=== PATIENT | male | born 1930 | race African-American/Black ===

== ENCOUNTER 2017-03-16 08:34 | Inpatient (IN) | payer MEDICARE ==
--- NOTE | ~2017-03-16 | CR72 ---
[facility] A Service of [facility] RADIOLOGY TEXT RESULTS PATIENT: PRADEEP HUGO LOCATION: [facility] : [birth year] UNIT #: [id number] AGE: [address]: Sneha Brumfield MD SEX: M ORDER DR: [id number] [facility] [address] [facility]. [place], [place] [address] [id number] I MR#: [id number] Acc #: [id number] NAME: PRADEEP HUGO : 1930 SEX: M STUDY DATE/TIME: 03/22/2017 6:24 UNIT: [facility] ROOM: [address] [place] [address] DESCRIPTION: CR Chest Single View Portable Attending Physician: Sneha Brumfield M.D. Ordering Physician: Jacquelin Cochran A.P.R.N. Primary Care Physician: Estefani Haskins MEDICAL IMAGING REPORT This report is preliminary unless electronic signature is present EXAM Portable chest 03/22/2017 COMPARISON 03/21/2017. HISTORY Shortness of breath, weakness, history of pneumothorax. Symptoms beginning on March 19 post thoracotomy. FINDINGS An AP view is obtained. Cardiac size in the patient is unchanged and borderline enlarged. There is some volume loss in the right lung with loculated right-sided pleural fluid. Left lung is clear. Compared with the last radiograph, there has been no interim change. CONCLUSION No interim change. Dictated by... Gelacio Astudillo M.D. THIS IS AN ELECTRONICALLY VERIFIED REPORT Gelacio Astudillo M.D. at 03/25/2017 9:17 AM KADI/eliu TD: 03/22/2017 07:27 JOB #: [id number] MEDICAL IMAGING REPORT [facility] A Service [facility] RADIOLOGY TEXT RESULTS PATIENT: PRADEEP HUGO LOCATION: [facility] : [birth year] UNIT #: [id number] AGE: [address]: Sneha Brumfield MD SEX: M ORDER DR: Page 1 of 1 COPY
--- NOTE | ~2017-03-16 | CR71 ---
[facility] A Service of [facility] RADIOLOGY TEXT RESULTS PATIENT: PRADEEP HUGO LOCATION: [facility] 555-01 : [birth year] UNIT #: [id number] AGE: [address]: Sneha Brumfield MD SEX: M ORDER DR: [id number] [facility] [address] [facility] [place], [place] [address] [id number] I MR#: [id number] Acc #: [id number] NAME: PRADEEP HUGO : 1930 SEX: M STUDY DATE/TIME: 03/19/2017 16:15 UNIT: [facility] ROOM: [facility] STUDY DESCRIPTION: CR Chest Single View Attending Physician: Sneha Brumfield M.D. Ordering Physician: Regina Rose M.D. Primary Care Physician: Diane Haskins M.D. MEDICAL IMAGING REPORT This report is preliminary unless electronic signature is present EXAM Portable chest radiograph INDICATION Evaluate for pneumothorax following right thoracentesis today. FINDINGS Cardiomegaly is identified. Patient appears to have an infiltrate within the right mid lung. There is some increased lucency seen at the right lung base. However, I think this is actually related to a skin fold rather than to a pneumothorax. Certainly, patient's scheduled CT of the chest will allow for further characterization. There has been a significant interval reduction in the volume of fluid seen on the right, although there is persistent small-volume fluid seen. Trace left pleural effusion is noted, as well. While the infiltrate within the right mid lung may reflect pneumonia, the possibility of underlying neoplasm is not excluded. Again, attention to this area on the patient's scheduled CT is recommended. Dictated by... Regina Rose M.D. THIS IS AN ELECTRONICALLY VERIFIED REPORT Regina Rose M.D. at 03/20/2017 1:20 PM AFF/psc TD: 03/19/2017 20:58 JOB #: [id number] MEDICAL IMAGING REPORT Page 1 of 1 COPY
--- NOTE | ~2017-03-16 | DS ---
Unit #: [id number] #: [id number] Patient: PRADEEP HUGO [id number] [address] [address] [id number] I MR#: [id number] NAME: PRADEEP HUGO ROOM: 555 Age: 86 Sex: M Admission Date: 03/16/2017 : 1930 Discharge Date: 03/23/2017 Attending Physician: Sneha Brumfield M.D. Primary Care Physician: Diane Haskins M.D. DISCHARGE SUMMARY DIAGNOSES ON ADMISSION 1. Sepsis. 2. Pneumonia. DIAGNOSES ON DISCHARGE 1. Sepsis, resolved. 2. Pneumonia. 3. Acute urinary tract infection. 4. Hypertension. 5. Alzheimer dementia. 6. Coronary artery disease. 7. BPH. 8. Hyperlipidemia. 9. Hypertension. CONSULTANTS Dr. Shah in pulmonary consultation. Dr. Garcia in surgical consultation. DIAGNOSTIC DATA LABORATORY: The patient's creatinine is 1.3, sodium 135, potassium 4.2. White blood cell count is 8.7, hemoglobin 8.9, platelets 311. Blood culture did not reveal any growth. IMAGING: CT scan of the chest was done, which revealed moderately large right-sided hydropneumothorax. There were opacities in the lobes of the right lung, with one of which appears nodular in the right lower lobe. The patient also had a multinodular goiter and nonobstructive right renal calculus. The patient has coronary artery calcifications present. CT scan of the head was done, which revealed no acute findings. PROCEDURE The patient had a thoracentesis of the right chest done with 600 cc of fluid removed. The cytology of pleural fluid revealed atypical cells. HOSPITAL COURSE The patient is an 86-year-old male who presented to [facility] with difficulty to arouse and was combative. Sepsis: The patient was treated with IV antibiotics and responded well and his sepsis has resolved. The patient's urine culture has revealed acute e-coli. The patient will be discharged on oral antibiotics. Unit #: [id number] #: [id number] Patient: PRADEEP HUGO Right hydropneumothorax: The patient had a thoracentesis done, with 600 cc of fluid removed. The patient was seen by Dr. Garcia in consultation. He recommended that the patient had a small area of loculated lung with air in there. They have recommended that it is improving and the patient can be discharged home. They have signed off and have advised to call them if needed. Today the patient is comfortable and is not in any acute distress. He is tolerating a diet. We will transfer him back to the facility. DISCHARGE CONDITION Stable. ACTIVITY As tolerated. DISCHARGE MEDICATIONS 1. Duo-Neb mini-neb treatment q.4 h. scheduled. 2. Flomax 0.4 mg p.o. daily. 3. Tylenol 500 mg p.o. q.4 h. p.r.n. pain. 4. Lipitor 10 mg p.o. at nighttime. 5. Lopressor 12.5 mg p.o. daily. 6. Milk of Magnesia 30 cc p.r.n. 7. Namenda 10 mg p.o. daily. 8. Bumex 0.5 mg p.o. every other day. 9. Lisinopril 2.5 mg p.o. daily. 10. Iron gluconate 324 mg p.o. daily. 11. Multivitamin 1 tablet p.o. daily. 12. Enteric coated aspirin 81 mg p.o. daily. 13. Plavix 75 mg p.o. daily. 14. Protonix 40 mg p.o. daily. 15. Omnicef 300 mg p.o. b.i.d. for 1 week. 16. Floranex 1 capsule p.o. b.i.d. for 1 week. DISPOSITION The patient will be transferred to the [facility]. FOLLOWUP The patient should follow up with Dr. Shah in two weeks. GOALS OF CARE Kindly follow up with the patient's family regarding goals of care and the patient's code status. I had called and discussed with the patient's daughter, Stone, about the patient's condition and goals of care. She is aware of the fact that the patient's overall prognosis is poor because of his advanced age and multiple medical issues. Dictated by... Jatinder Dixon TD: 03/23/2017 12:23 JOB #: [id number] Unit #: [id number] #: [id number] Patient: PRADEEP HUGO CC: Jatinder Mosquera M.D. DISCHARGE SUMMARY Page 1 of 1 X Sneha Brumfield MD DISCHARGE SUMMARY
--- NOTE | ~2017-03-16 | XA203 ---
[facility] A Service of [facility] RADIOLOGY TEXT RESULTS PATIENT: PRADEEP HUGO LOCATION: [facility] 555-01 : [birth year] UNIT #: [id number] AGE: [address]: Sneha Brumfield MD SEX: M ORDER DR: [id number] [place] [id number] [facility]. [place], [place] [address] [id number] I MR#: [id number] Acc #: [id number] NAME: PRADEEP HUGO : 1930 SEX: M STUDY DATE/TIME: 03/19/2017 15:51 UNIT: C5B ROOM: [facility] STUDY DESCRIPTION: XA Thoracentesis Attending Physician: Sneha Brumfield M.D. Ordering Physician: Alan Shah M.D. Primary Care Physician: Diane Haskins M.D. MEDICAL IMAGING REPORT This report is preliminary unless electronic signature is present EXAM Ultrasound-guided thoracentesis. INDICATIONS Right pleural effusion. Patient's most recent thoracentesis was in July of 2016. Procedure, risks, benefits, and alternatives to the procedure were explained to the patient, and signed, informed consent was obtained. Seated in the upright position, the preliminary ultrasound of the right hemithorax was performed which demonstrated a large right pleural effusion. This image was preliminary saved and the overlying skin was marked. The patient was prepped and draped in the sterile fashion. Time-out was performed as protocol. PROCEDURE The skin and subcutaneous tissues were anesthetized with buffered lidocaine. The [employer]rueh catheter was advanced into the fluid with aspiration of serosanguineous material. The catheter was hooked to suction tubing. There was evacuation of a total of 600 mL of serosanguineous material. The catheter and stent were removed, and manual pressure was applied until hemostasis was obtained. IMPRESSION Technically successful ultrasound-guided right thoracentesis with evacuation of 600 mL of serosanguineous material. Ultrasound was used during the procedure and permanent images were saved. Dictated by... Regina Rose M.D. [facility] A Service of [facility] & [facility] RADIOLOGY TEXT RESULTS PATIENT: PRADEEP HUGO LOCATION: [facility] 555-01 : [birth year] UNIT #: [id number] AGE: [address]: Sneha Brumfield MD SEX: M ORDER DR: THIS IS AN ELECTRONICALLY VERIFIED REPORT Regina Rose M.D. at 03/22/2017 3:40 PM AFF/olamide TD: 03/20/2017 17:33 JOB #: [id number] MEDICAL IMAGING REPORT Page 1 of 1 COPY
--- NOTE | ~2017-03-16 | CR72 ---
[facility] A Service of [facility] RADIOLOGY TEXT RESULTS PATIENT: PRADEEP HUGO LOCATION: [facility] : [birth year] UNIT #: [id number] AGE: [address]: Jose Small MD SEX: M ORDER DR: [id number] [facility] [address] [place], [place] [address] [id number] E MR#: [id number] Acc #: [id number] NAME: PRADEEP HUGO : 1930 SEX: M STUDY DATE/TIME: 03/16/2017 9:28 UNIT: [facility] ROOM: STUDY DESCRIPTION: CR Chest Single View Portable Attending Physician: Jose Small M.D. Ordering Physician: Jose Small M.D. Primary Care Physician: Diane Haskins M.D. MEDICAL IMAGING REPORT This report is preliminary unless electronic signature is present EXAM Portable chest 03/16/2017 INDICATION Shortness of air and weakness today. FINDINGS AP portable chest compared with 07/24/2016. There is marked cardiomegaly. There is increased infiltrate or atelectasis in the right eow-ak-xaumv lung with a right pleural effusion which is also slightly larger. No pneumothorax is seen. There may be a minimal amount of left perihilar infiltrate. Attention on followup is recommended. Dictated by... Gianni Morton Jr., M.D. THIS IS AN ELECTRONICALLY VERIFIED REPORT Gianni Morton Jr., M.D. at 03/16/2017 3:54 PM FANNY/brandon TD: 03/16/2017 13:18 JOB #: [id number] MEDICAL IMAGING REPORT Page 1 of 1 COPY
--- NOTE | ~2017-03-16 | CR72 ---
[facility] A Service of [facility] & [facility] RADIOLOGY TEXT RESULTS PATIENT: PRADEEP HUGO LOCATION: [facility] 555-01 : [birth year] UNIT #: [id number] AGE: [address]: Sneha Brumfield MD SEX: M ORDER DR: [id number] [facility] [address] [facility] [place], [place] [address] [id number] I MR#: [id number] Acc #: [id number] NAME: PRADEEP HUGO : 1930 SEX: M STUDY DATE/TIME: 03/20/2017 5:58 UNIT: [facility] ROOM: [facility] STUDY DESCRIPTION: CR Chest Single View Portable Attending Physician: Sneha Brumfield M.D. Ordering Physician: Fernanda Bynum M.D. Primary Care Physician: Diane Haskins M.D. MEDICAL IMAGING REPORT This report is preliminary unless electronic signature is present EXAM Portable chest. INDICATION Follow up hydropneumothorax. FINDINGS A portable view of the chest is obtained. The heart size and vascularity are normal. The left lung is clear. The right lung continues to be abnormal. There is a rounded density in the right central lung is 4.4 cm in diameter and it is much more conspicuous than on the most recent study. This probably represents atelectasis. The patient's CT scan yesterday showed a hydropneumothorax and I believe that is stable as compared with that CT examination. IMPRESSION The patient appears to have a hydropneumothorax that is confined to the lung base and it is better seen on the CT scan done yesterday. Today's chest x-ray shows increasing density in the right perihilar region which is probably due to increasing lung atelectasis. The left lung is clear. Dictated by... Zack Leroy M.D. THIS IS AN ELECTRONICALLY VERIFIED REPORT Zack Leroy M.D. at 03/20/2017 3:54 PM FEL/bd TD: 03/20/2017 13:38 JOB #: [id number] MEDICAL IMAGING REPORT [facility] A Service of [facility] RADIOLOGY TEXT RESULTS PATIENT: PRADEEP HUGO [id number] [birth year] UNIT #: [id number] AGE: [address]: Sneha Brumfield MD SEX: M ORDER DR: Page 1 of 1 COPY
--- NOTE | ~2017-03-16 | CO ---
Unit #: [id number] #: [id number] Patient: PRADEEP HUGO [id number] [address] [address] [id number] I MR#: [id number] NAME: PRADEEP HUGO ROOM: 555 Age: 86 Sex: M Admission Date: 03/16/2017 : 1930 Attending Physician: Sneha Brumfield M.D. Primary Care Physician: Diane Haskins M.D. Consultation Date: 03/17/2017 CONSULTATION REPORT REASON FOR CONSULTATION Pneumonia. HISTORY OF PRESENT ILLNESS This is an 86-year-old male who is well known to our service from previous admission, with a past medical history significant for dementia, hypertension, hyperlipidemia, status post cardiac arrest last year, who was [facility] the emergency [facility] with altered mental status. Per the staff, the patient was difficult to arouse this morning. However, once he was awake he became very combative and belligerent. The patient currently is very calm and following commands. However, he does not know why he is here and he denied any symptoms to me, but again he is confused. PAST MEDICAL HISTORY 1. Alzheimer dementia. 2. Hypertension. 3. Coronary artery disease. 4. BPH. 5. Glaucoma. 6. Hyperlipidemia. 7. Hypertension. 8. Status post cardiac arrest last year. PAST SURGICAL HISTORY 1. Cataract surgery. 2. Prostate surgery. SOCIAL HISTORY The patient is a prison resident. No history of alcohol, drug abuse or smoking. Code status is full. ALLERGIES No known drug allergies. HOME MEDICATIONS 1. Pantoprazole. 2. Bumex. 3. Plavix. 4. Ferrous sulfate. 5. Metoprolol. 6. Aspirin. Unit #: [id number] #: [id number] Patient: PRADEEP HUGO 7. Flomax. 8. Vistaril. 9. Lipitor. 10. Milk of Magnesia. REVIEW OF SYSTEMS Unable to obtain as the patient is ill. PHYSICAL EXAMINATION GENERAL: The patient does not seem in acute distress currently. VITALS: Blood pressure 134/59, respiratory rate 19, O2 saturations 98%. HEENT: Atraumatic, normocephalic. Pupils equally round and reactive to light and accommodation. Extraocular muscles intact. NECK: Supple. No jugular venous distension. No lymphadenopathy. CHEST: Bilateral wheezing with fine crackles at the bases. HEART: S1 and S2. No murmur, gallop or rub. ABDOMEN: Soft and nontender. Bowel sounds positive. No hepatosplenomegaly. EXTREMITIES: No edema or cyanosis. SKIN: No rashes. NEUROLOGIC: The patient is awake, alert and following commands, but he is confused and has underlying dementia. ASSESSMENT 1. Sepsis. 2. Pneumonia. Gram negative-MRSA. 3. Urinary tract infection. 4. TME. PLAN 1. Will start the patient on aggressive bronchodilator, IV steroids and mucolytics. 2. IV antibiotics to cover gram negative etiology. 3. Gentle IV hydration. Dictated by... Junior Bynum M.D. EA/linda TD: 03/18/2017 06:43 JOB #: [id number] CONSULTATION REPORT Page 1 of 1 X JUNIOR HOPE MD X CONSULTATION REPORT
--- NOTE | ~2017-03-16 | EKG ---
PATIENT: PRADEEP HUGO UNIT #: [id number] Ventricular Rate: 54 BPM Atrial Rate: 54 BPM P-R Interval: 138 ms QRS Duration: 100 ms Q-T Interval: 492 ms QTC Calculation(Bezet): 466 ms P [place]: 37 degrees Calculated R [place]: 63 degrees Calculated T [place]: -12 degrees Diagnosis Line: Sinus bradycardia Diagnosis Line: Nonmdiagnostic inferior Q waves Diagnosis Line: Borderline ECG Diagnosis Line: When compared with ECG of 22-JUL-2016 11:37, Diagnosis Line: WI interval has decreased Diagnosis Line: Confirmed by LEAH GONZALES MD ([id number]) on Diagnosis Line: 03/17/2017 1:41:05 PM INTERPRETING MD: HAI
--- NOTE | ~2017-03-16 | CR72 ---
[facility] A Service of [facility] & [facility] RADIOLOGY TEXT RESULTS PATIENT: PRADEEP HUGO LOCATION: [facility] 555-01 : [birth year] UNIT #: [id number] AGE: [address]: Sneah Brumfield MD SEX: M ORDER DR: [id number] [facility] [address] [facility] [place], [place] [address] [id number] I MR#: [id number] Acc #: [id number] NAME: PRADEEP HUGO : 1930 SEX: M STUDY DATE/TIME: 03/21/2017 7:22 UNIT: [facility] ROOM: [facility] STUDY DESCRIPTION: CR Chest Single View Portable Attending Physician: Sneha Brumfield M.D. Ordering Physician: Jacquelin Cochran A.P.R.N. Primary Care Physician: Diane Haskins M.D. MEDICAL IMAGING REPORT This report is preliminary unless electronic signature is present EXAM Frontal chest, 03/21/2017 INDICATION 86-year-old male with chest pain, shortness of air. Symptoms 5 days. Hypertension. TECHNIQUE Frontal chest COMPARISON 03/20/2017 FINDINGS Cardiac silhouette borderline enlarged and stable. There is old healed granulomatous disease. The vascularity is unremarkable. The left lung is clear. There is redemonstration of a right-sided hydropneumothorax. The pleural line is best visualized in the mid and lower lung zones on the right. There is an area of probable rounded atelectasis in the perihilar midlung on the right not significantly changed, measuring about 4.5 cm. IMPRESSION 1. No significant interval change in the right-sided hydropneumothorax. Probable rounded atelectasis in the perihilar midlung zone on the right. 2. Borderline to mild cardiomegaly. Left lung clear. Dictated by... Caleb Boykin M.D. THIS IS AN ELECTRONICALLY VERIFIED REPORT Caleb Boykin M.D. at 03/21/2017 9:55 AM WILIAN/elva STS. [facility] A Service of [facility] & [facility] RADIOLOGY TEXT RESULTS PATIENT: PRADEEP HUGO LOCATION: [facility] 555-01 : [birth year] UNIT #: [id number] AGE: [address]: Sneha Brumfield MD SEX: M ORDER DR: TD: 03/21/2017 09:08 JOB #: [id number] MEDICAL IMAGING REPORT Page 1 of 1 COPY
--- NOTE | ~2017-03-16 | CT57 ---
[facility] A Service of [facility] RADIOLOGY TEXT RESULTS PATIENT: PRADEEP HUGO LOCATION: [facility] [id number] : [birth year] UNIT #: [id number] AGE: [address]: Sneha Brumfield MD SEX: M ORDER DR: [id number] [facility] [address] [place], [place] [address] [id number] MR#: [id number] Acc #: [id number] NAME: PRADEEP HUGO : 1930 SEX: M STUDY DATE/TIME: 03/19/2017 19:43 UNIT: [facility] ROOM: [facility] STUDY DESCRIPTION: CT Chest Wo Cont Attending Physician: Sneha Brumfield M.D. Ordering Physician: Alan Shah M.D. Primary Care Physician: Diane Haskins M.D. MEDICAL IMAGING REPORT This report is preliminary unless electronic signature is present EXAM CT chest without IV contrast COMPARISON September 27, 2016. INDICATIONS 86-year-old male with dyspnea today. History of Alzheimer's dementia. FINDINGS Axial CT imaging of the chest was performed. Coronal and sagittal reformats were constructed. Lack of IV contrast limits evaluation of adenopathy, vasculature and viscera. This CT exam was performed with one or more of the following radiation dose reduction techniques: Automatic exposure control, adjustment of mA and/or kV according to patient size, and iterative reconstruction. There is dependent subcutaneous body wall edema bilaterally. Benign lipoma noted in the right deltoid muscle. No adenopathy within the chest. There is heterogeneous appearance of the thyroid gland, with projection of the left thyroid gland into the superior left mediastinum. Findings are most consistent with multinodular goiter. There is a moderate-sized right hydropneumothorax. There is attenuation in right middle and lower lobes, appearing somewhat nodular in the right lower lobe, perhaps reflecting rounded atelectasis. There are more focal bronchoalveolar distribution ground-glass opacities in the right pulmonary apex with a separate right apical pulmonary nodular density measuring up to 9 mm, which is stable from September 2016. There is ground-glass bronchoalveolar distribution opacities noted in the lingula, new from September 2016. Band-like atelectasis noted in the dependent left lower lobe. There is moderate cardiomegaly with trace pericardial effusion. Coronary artery calcifications also noted. There is normal caliber of the thoracic aorta. Main pulmonary artery appears dilated, suggestive of pulmonary arterial STS. [facility] A Service of [facility] RADIOLOGY TEXT RESULTS PATIENT: PRADEEP HUGO LOCATION: [facility] [id number] : [birth year] UNIT #: [id number] AGE: [address]: Sneha Brumfield MD SEX: M ORDER DR: hypertension. Imaging was performed in the expiratory phase. Airways appear widely patent. There is bulky calcified lymph node in the left infrahilar location. There is diffuse osteopenia. There are multiple healed right anterior rib fractures. Large Schmorl node seen at the superior L1 vertebral body. Cholelithiasis without evidence of acute cholecystitis. Calcified granulomas within the liver and spleen. Nonobstructive right renal calculus. Detailed evaluation of the upper abdomen is limited by motion. There is calcification of the abdominal aorta involving the origins of the superior mesenteric and bilateral renal arteries. No acute findings in the imaged upper abdomen. IMPRESSION 1. Moderate to large right-sided hydropneumothorax, possibly iatrogenic. 2. Opacities in all lobes of the right lung, one of which appears nodular in the right lower lobe, possibly reflecting rounded atelectasis, measuring up to approximately 2 cm. There is also a stable 9 mm right apical pulmonary nodule as compared to September 2016. There are also tree-in-bud nodular appearing opacities in the adjacent right pulmonary apex. Given questionable new nodule in the right lower lobe, consider CT chest followup without IV contrast in 3 months. There is also nonspecific bronchoalveolar ground-glass attenuation in the lingula, possibly reflecting focal pneumonitis. Developing pneumonia not excluded. This could be reassessed at the time of the followup chest CT. 3. Findings most consistent with multinodular goiter. 4. Diffuse arterial calcifications in the abdomen and pelvis. 5. Nonobstructive right renal calculus. 6. Coronary artery calcifications, moderate cardiomegaly with trace pericardial effusion. 7. Top-normal caliber of the pulmonary artery suggestive of pulmonary arterial hypertension. 8. Cholelithiasis without evidence of acute cholecystitis. Patient's nurse, Aurea, was notified of the findings of large right hydropneumothorax at 11:50 p.m. on March 19, 2017 and she acknowledged receipt. She will notify the patient's physician of these findings. Dictated by... Issac Duffy M.D. THIS IS AN ELECTRONICALLY VERIFIED REPORT Issac Duffy M.D. at 03/20/2017 4:07 PM BLM/psc TD: 03/20/2017 03:59 JOB #: [id number] MEDICAL IMAGING REPORT [facility]. [facility] A Service of [facility] RADIOLOGY TEXT RESULTS PATIENT: PRADEEP HUGO LOCATION: [facility] [id number] : [birth year] UNIT #: [id number] AGE: [address]: Sneha Brumfield MD SEX: M ORDER DR: Page 1 of 1 COPY
--- NOTE | ~2017-03-16 | HP ---
Unit #: [id number] #: [id number] Patient: PRADEEP HUGO [id number] [address] [address] [id number] E MR#: [id number] NAME: PRADEEP HUGO ROOM: Age: 86 Sex: M Admission Date: 03/16/2017 : 1930 Attending Physician: Jose Small M.D. Primary Care Physician: Estefani Haskins HISTORY AND PHYSICAL CHIEF COMPLAINT Altered mental status. HISTORY OF PRESENT ILLNESS An 86-year-old male with a history of dementia, hypertension, hyperlipidemia, and questionable COPD, brought to the emergency room from [facility] with altered mental status. The patient was difficult to wake early this morning. Once awake, the patient became more combative and the patient was sent to the emergency room for further workup. The patient had a workup in the emergency room that showed UTI with 3+ leukocyte esterase, positive nitrites, innumerable WBCs, and bacteria 4+. A chest x-ray shows increased infiltrate or atelectasis in the right middle lower lung with a right pleural effusion which is also slightly larger, no pneumothorax. There may be a minimal amount of left perihilar infiltrate. The patient was found to be hypothermic with a temperature of 93.1. The patient is being admitted for the above reasons. PAST MEDICAL HISTORY 1. History of Alzheimer dementia. 2. Hypertension. 3. Coronary artery disease with cardiac catheterization. 4. BPH. 5. Glaucoma. 6. Hyperlipidemia. 7. Hypertension. 8. Chronic bilateral lower extremity venous studies. PAST SURGICAL HISTORY 1. Cataract surgery. 2. Prostate surgery. ALLERGIES None. HOME MEDICATIONS 1. Pantoprazole. 2. Bumex. 3. Plavix. 4. Memantine. 5. Ferrous gluconate. 6. Multivitamins. 7. Metoprolol. 8. Aspirin. Unit #: [id number] #: [id number] Patient: PRADEEP HUGO 9. Combivent. 10. Dorzolamide. 11. Flomax. 12. Zestril. 13. Lipitor. 14. Milk of Magnesia. 15. Acetaminophen. SOCIAL HISTORY Resident of [facility]. No history of smoking, alcohol, or illicit drug abuse. Code status is full code from the records. REVIEW OF SYSTEMS Unable to obtain as the patient has history of dementia. FAMILY HISTORY Reviewed and none. PHYSICAL EXAMINATION GENERAL: On examination, the patient is lying on the bed, not in acute distress. VITALS: Temperature is 98, pulse 69, respirations 20, saturating 97% on 2 L, blood pressure 123/55. HEENT: Head: Atraumatic, normocephalic. Pupils equal, round, and reactive to light and accommodation. Extraocular movements are intact. Dry mucous membranes. NECK: Supple. LUNGS: Decreased air entry at the bases. Positive for rhonchi. HEART: Regular rate and rhythm. ABDOMEN: Soft. Positive bowel sounds. EXTREMITIES: Bilateral lower extremity venous studies. NEUROLOGIC: Alert, awake, oriented x0. Unable to follow commands (1) . PSYCHIATRIC: Unable to assess. DIAGNOSTIC STUDIES LABORATORY: Lactic acid is 0.8. Troponin less than 0.05. Ammonia level is 27. Sodium 137, potassium 4.2, chloride 111, bicarbonate 22, glucose 82, BUN 23, creatinine 1.1 (on admission 2.4). UA shows 3+ leukocyte esterase, positive nitrites, trace protein, 2+ blood, urine RBC 10-25, innumerable urine WBC, 4+ urine bacteria. INR is 1. WBC 3.5, hemoglobin 8.1, hematocrit 24.4, platelets 227,000. IMAGING: CT of the head shows motion degraded exam. No acute findings in the brain. No skull fracture. There is a small probable left frontal meningioma measuring only about 3 mm in depth. Chest x-ray shows there is increased infiltrate or atelectasis in the right middle lower lung with a right pleural effusion which is also slightly larger. No pneumothorax is seen. There may be a minimal amount of left perihilar infiltrate. Attention on followup is recommended. ASSESSMENT 1. Sepsis. 2. Urinary tract infection. 3. Pneumonia. 4. Altered mental status. Unit #: [id number] #: [id number] Patient: PRADEEP HUGO PLAN Plan to admit the patient to inpatient. At present, he will be initiated on sepsis protocol and continue with the IV antibiotics, Zosyn. Follow with urine cultures and sputum cultures. Further recommendations will follow as more lab results are available. Dictated by Jatinder Adams TD: 03/16/2017 15:36 JOB #: [id number] HISTORY AND PHYSICAL Page 1 of 1 X EVANGELINA CAVANAUGH MD HISTORY AND PHYSICAL
--- NOTE | ~2017-03-16 | CT71 ---
[facility] A Service of [facility] RADIOLOGY TEXT RESULTS PATIENT: PRADEEP HUGO LOCATION: [facility] : [birth year] UNIT #: [id number] AGE: [address]: Jose Small MD SEX: M ORDER DR: [id number] [facility] [address] [place], [place] [address] [id number] E MR#: [id number] Acc #: [id number] NAME: PRADEEP HUGO : 1930 SEX: M STUDY DATE/TIME: 03/16/2017 10:21 UNIT: [facility] ROOM: STUDY DESCRIPTION: CT Head Wo Contrast Attending Physician: Jose Small M.D. Ordering Physician: Jose Small M.D. Primary Care Physician: Diane Haskins M.D. MEDICAL IMAGING REPORT This report is preliminary unless electronic signature is present EXAM Head CT 03/16. INDICATIONS Confusion started this morning. Patient somewhat combative as well. History of dementia. FINDINGS Axial images were obtained from the base to the vertex without contrast. This CT exam was performed with one or more of the following radiation dose reduction techniques: Automatic exposure control, adjustment of mA and/or kV according to patient size, and iterative reconstruction. COMPARISON 07/22/16. FINDINGS Exam is motion degraded. There is generalized atrophy. Ventricular size and configuration are stable. Chronic small vessel ischemic changes are present in the white matter. There is a focal area of increased density in the left frontal region which appears dural-based measuring up to 3 mm in thickness. This was present on prior studies and is presumably a very small meningioma. No acute infarct or hemorrhage is seen. No skull fracture is seen. IMPRESSION Motion degraded exam. No acute findings in the brain. No skull fracture. There is a small probable left frontal meningioma measuring only about 3 mm in depth. Dictated by... Gianni Morton Jr., M.D. [facility] A Service of [facility] RADIOLOGY TEXT RESULTS PATIENT: PRADEEP HUGO LOCATION: [facility] : [birth year] UNIT #: [id number] AGE: [address]: Jose Small MD SEX: M ORDER DR: THIS IS AN ELECTRONICALLY VERIFIED REPORT Gianni Morton Jr., M.D. at 03/16/2017 3:54 PM FANNY/warren TD: 03/16/2017 14:11 JOB #: [id number] MEDICAL IMAGING REPORT Page 1 of 1 COPY
--- NOTE | ~2017-03-16 | CO ---
Unit #: [id number] #: [id number] Patient: PRADEEP HUGO [id number] [place], [place] [address] [id number] I MR#: [id number] NAME: PRADEEP HUGO ROOM: 555 Age: 86 Sex: M Admission Date: 03/16/2017 : 1930 Attending Physician: Sneha Brumfield M.D. Primary Care Physician: Diane Haskins M.D. Requesting Physician: Alan Shah M.D. CONSULTATION REPORT REASON FOR CONSULT Consult is requested regarding hydropneumothorax with possible trapped lung. HISTORY OF PRESENT ILLNESS Mr. Hugo is an 86-year-old -[place] male who was received from an outside facility, presented to [facility] with increased confusion with baseline dementia and aggression. On admit, he was noted to have a urinary tract infection, which grew out E. coli. On CT of the chest, on 03/19/17, he was noted to have a moderate sized hydropneumothorax and some ground-glass opacities, as well as a 9 mm apical mass which was new from September of 2016, as well as a small right pleural effusion. He underwent thoracentesis on 03/19/17 with 600 mL of serosanguineous fluid removed. Gram stain was negative. Cytology showed atypical cells. The patient is a poor historian and the history is from the chart and the nurses. The patient has history of thoracentesis in July of 2016 with 1700 mL removed from the right. No cytology and no cultures were performed. Thoracic Surgery has been asked to evaluate the patient for the hydropneumothorax. Chest x-ray films have been reviewed back to March of 2016 which shows that the beginning of the right pleural effusion was between May and July of 2016. PAST MEDICAL HISTORY Coronary artery disease, Alzheimer's, benign prostatic hypertrophy, glaucoma, hypertension and hyperlipidemia. PAST SURGICAL HISTORY Cataract surgery and prostate surgery as well as thoracentesis in July of 2016 and March of 2017. FAMILY AND SOCIAL HISTORY The patient lives in a facility. He is a former smoker, unable to determine how many years or how many pack per day. He has no history of ETOH of illicit drug use. REVIEW OF SYSTEMS Unable to obtain due to patient's mental status. PHYSICAL EXAMINATION GENERAL APPEARANCE: Mr. Pradeep Hugo is a well-groomed, 86-year-old, -[place] male who is evaluated while he is lying supine in the bed. He is a poor historian regarding to his dementia. However, he is able to answer yes and no questions and, as well, nod his head appropriately. He is alert to his name. He does not know which facility Unit #: [id number] #: [id number] Patient: PRADEEP HUGO he is in or why he is here. VITAL SIGNS: Temperature 97.7. Heart rate 70. O2 sats 98%. Respiratory rate 18. Blood pressure 141/65. HEENT: He is normocephalic. He does have asymmetry or clouding of the right eye, unable to determine his visual status. NECK: Supple. His trachea is midline. He does have thyromegaly noted with goiter. LUNGS: Inspiratory and expiratory wheezes bilaterally and breath sounds are decreased in the bases. CARDIOVASCULAR: S1, S2 without rub, without murmur. No S3 or S4 and there is no JVD and no peripheral edema. ABDOMEN: Large, round, soft. Bowel sounds positive, nontender. No hepatosplenomegaly. EXTREMITIES: Warm and dry. There is no edema, no clubbing and no cyanosis. There is no palpable cervical, supraclavicular or occipital lymphadenopathy. DIAGNOSTIC STUDIES LABORATORY: Lab work is from 03/20. BUN 21, creatinine 1.6. Hemoglobin 8.4, hematocrit 25.7, sodium 140, potassium 4.9, platelets 273 and WBC 8.4. IMAGING: CT on 03/19/17 is discussed in paragraph one. Chest x-ray this morning shows small area of loculated area on the right which is smaller than on last exam yesterday. IMPRESSION Small area of loculated air that hopefully will resolve on its own. Cultures are still pending. However, gram stain is negative and Cytology shows atypical cells. We would not want to intervene on this gentleman of advanced age with dementia unless absolutely necessary. We will await culture results before discussion of any type of other intervention. As long as his chest x-ray has not changed, we would leave him without a chest tube at present as well. It is also to be noted this is a recurrent right pleural effusion. Thank you very much for allowing us to participate in the care of your patient. If you have any questions, please do not hesitate to call. Dictated by... Jacquelin Cochran A.P.R.N. for TRAV AGUIRRE M.D. TB/bd TD: 03/21/2017 08:17 JOB #: [id number] CONSULTATION REPORT Page 1 of 1 X Jacquelin Cochran [employer] X CONSULTATION REPORT
[~2017-03-16 08:34] MED LIST: ACETAMINOPHEN500 M5 PO; ASPIRIN81 M2 PO; ATORVASTATIN CA10 MG PO; CLOPIDOGREL BIS75 MG PO; COMBIVENT MININEB INH; FERRO-TIME325 MG PO; FLOMAX0.4 M1 PO; HALOPERIDOL2 MG PO; LASIX20 MG PO; LISINOPRIL2.5 MG PO; MEMANTINE HCL10 MG PO; METOPROLOL TAR25 MG PO; MILK OF MAGNESIA PO; PROTONIX PO; TAB-A-VITE WIT1 EACH PO; TRUSOPT10 ML OU; VITAMIN B122500 MCG PO
[2017-03-16 10:10] LABS: BASOPHIL% 0.5 % (0-2.5); EOSINOPHIL# 0.5 X10e3 (0-0.7); EOSINOPHIL% 14.1 % (0.0-7.0); HEMATOCRIT 24.4 % (38.0-50.0); HEMOGLOBIN 8.1 gm/dL (13.0-16.0); LYMPHOCYTE# 0.7 X10e3 (1.0-3.5); LYMPHOCYTE% 21.2 % (17.0-45.0); MEAN CELL VOLUME 85.8 FL (83-96); MEAN CORPUSCULAR HEMOGLOBIN 28.6 PG (28-34); MEAN CORPUSCULAR HGB CONC 33.4 g/dL (30-36); MONOCYTE# 0.6 X10e3 (0-1.0); MONOCYTE% 18.4 % (3.0-12.0); NEUTROPHIL# 1.6 X10e3 (1.5-7.1); NEUTROPHIL% 45.8 % (40-75); PLATELET COUNT 227 X10e3 (140-420); RED BLOOD COUNT 2.84 X10e (3.90-5.60); RED CELL DISTRIBUTION WIDTH 16.6 % (11.0-15.5); WHITE BLOOD COUNT 3.5 X10e3 (4.0-10.5)
[2017-03-16 10:15] LABS: DIFF IND NO
[2017-03-16 10:15] LABS: POC - CKMB 4.4 ng/mL (0.0-7.9); POC - TROPONIN <0.05 ng/mL (<=0.05)
[2017-03-16 10:24] LABS: PARTIAL THROMBOPLASTIN TIME 27.8 SECONDS (23.5-31.3)
[2017-03-16 10:33] LABS: URINE SOURCE CLEAN CATCH
[2017-03-16] MEDS ORDERED: BUMETANIDE0.5 MG PO (10:37)
[2017-03-16] MEDS ORDERED: PANTOPRAZOLE SO20 MG PO (10:37)
[2017-03-16] MEDS ORDERED: MEMANTINE HCL10 MG PO (10:37)
[2017-03-16] MEDS ORDERED: CLOPIDOGREL75 MG PO (10:37)
[2017-03-16] MEDS ORDERED: METOPROLOL TART25 MG PO (10:38)
[2017-03-16] MEDS ORDERED: FERROUS GLUCON324 M1 PO (10:38)
[2017-03-16] MEDS ORDERED: ASPIRIN81 M2 PO (10:38)
[2017-03-16] MEDS ORDERED: MULTIVITAMINS1 EAC3 PO (10:38)
[2017-03-16] MEDS ORDERED: ATORVASTATIN CA40 MG PO (10:39)
[2017-03-16] MEDS ORDERED: DORZOLAMIDE HCL10 M2 OU (10:39)
[2017-03-16] MEDS ORDERED: FLOMAX0.4 M1 PO (10:39)
[2017-03-16] MEDS ORDERED: COMBIVENT RESPIM4 GM PO (10:39)
[2017-03-16] MEDS ORDERED: LISINOPRIL PO (10:39)
[2017-03-16] MEDS ORDERED: [UNRECOGNIZED DRUG - OTHER] PO (10:40)
[2017-03-16] MEDS ORDERED: MILK OF MAGNESIA PO (10:40)
[2017-03-16] MEDS ORDERED: MAPAP500 MG PO (10:41)
[2017-03-16 10:42] LABS: CULTURE INDICATED? YES; URINE APPEARANCE TURBID; URINE BACTERIA AUWI 4+ (NEGATIVE); URINE BILIRUBIN NEG (NEG); URINE BLOOD 2+ (NEG); URINE COLOR YELLOW; URINE GLUCOSE NEG (NEG); URINE KETONE NEG (NEG); URINE LEUKOCYTE ESTERASE 3+ (NEG); URINE NITRATE POS (NEG); URINE PH 7.5 (5-8); URINE PROTEIN TRACE (NEG); URINE SPECIFIC GRAVITY 1.008 (1.003-1.035); URINE SQUAMOUS EPITHELIAL CELL MOD /[HPF]; UWBCS1 AUWI INNUM (0-5)
[2017-03-16 10:49] LABS: U HYALINE CASTS AUWI 0-2 /[LPF]
[2017-03-16 10:50] LABS: ALBUMIN SERUM 2.6 g/dL (3.5-5.0); BILIRUBIN, DIRECT 0.1 mg/dL (0.0-0.2); BILIRUBIN,INDIRECT 0.6 mg/dL (0.0-0.9); BILIRUBIN,TOTAL 0.7 mg/dL (0.2-2.0); BUN/CREATININE RATIO 20.9; CALCIUM SERUM 8.4 mg/dL (8.4-10.2); CREATININE SERUM 1.1 mg/dL (0.6-1.4); GLOM FILT RATE Estimated 60.1 mL/min (>60); MAGNESIUM 2.4 mg/dL (1.6-3.0); PHOSPHOROUS 3.4 mg/dL (2.5-4.6); POTASSIUM 4.2 mmol/L (3.5-5.1)
[2017-03-16 11:55] LABS: POC - CKMB 5.4 ng/mL (0.0-7.9); POC - TROPONIN <0.05 ng/mL (<=0.05)
[2017-03-17 06:33] LABS: BASOPHIL% 0.5 % (0-2.5); EOSINOPHIL# 0.3 X10e3 (0-0.7); EOSINOPHIL% 4.1 % (0.0-7.0); HEMATOCRIT 24.9 % (38.0-50.0); HEMOGLOBIN 8.2 gm/dL (13.0-16.0); LYMPHOCYTE# 0.8 X10e3 (1.0-3.5); LYMPHOCYTE% 12.7 % (17.0-45.0); MEAN CELL VOLUME 86.3 FL (83-96); MEAN CORPUSCULAR HEMOGLOBIN 28.3 PG (28-34); MEAN CORPUSCULAR HGB CONC 32.8 g/dL (30-36); MEAN PLATELET VOLUME 7.2 FL (6.5-11.5); MONOCYTE# 0.9 X10e3 (0-1.0); MONOCYTE% 14.3 % (3.0-12.0); NEUTROPHIL# 4.2 X10e3 (1.5-7.1); NEUTROPHIL% 68.4 % (40-75); PLATELET COUNT 226 X10e3 (140-420); RED BLOOD COUNT 2.89 X10e (3.90-5.60); RED CELL DISTRIBUTION WIDTH 16.8 % (11.0-15.5)
[2017-03-17 06:36] LABS: DIFF IND NO; WHITE BLOOD COUNT 6.2 X10e3 (4.0-10.5)
[2017-03-17 07:37] LABS: BUN/CREATININE RATIO 17.14; CALCIUM SERUM 8.4 mg/dL (8.4-10.2); CREATININE SERUM 1.4 mg/dL (0.6-1.4); GLOM FILT RATE Estimated 44.9 mL/min (>60); POTASSIUM 5.2 mmol/L (3.5-5.1)
[2017-03-18 06:21] LABS: BUN/CREATININE RATIO 19.33; CALCIUM SERUM 8.3 mg/dL (8.4-10.2); CREATININE SERUM 1.5 mg/dL (0.6-1.4); GLOM FILT RATE Estimated 41.3 mL/min (>60); POTASSIUM 4.6 mmol/L (3.5-5.1)
[2017-03-19 06:05] LABS: HEMATOCRIT 25.7 % (38.0-50.0); HEMOGLOBIN 8.4 gm/dL (13.0-16.0); MEAN CELL VOLUME 86.5 FL (83-96); MEAN CORPUSCULAR HEMOGLOBIN 28.4 PG (28-34); MEAN CORPUSCULAR HGB CONC 32.8 g/dL (30-36); MEAN PLATELET VOLUME 7.2 FL (6.5-11.5); RED BLOOD COUNT 2.97 X10e (3.90-5.60); RED CELL DISTRIBUTION WIDTH 16.5 % (11.0-15.5); WHITE BLOOD COUNT 8.4 X10e3 (4.0-10.5)
[2017-03-19 07:22] LABS: BUN/CREATININE RATIO 16.87; CALCIUM SERUM 8.4 mg/dL (8.4-10.2); CREATININE SERUM 1.6 mg/dL (0.6-1.4); GLOM FILT RATE Estimated 38.2 mL/min (>60); POTASSIUM 4.9 mmol/L (3.5-5.1)
[2017-03-19 16:43] LABS: PROTEIN, BODY FLUID 2.7 gm/dL
[2017-03-19 16:48] LABS: BF TOTAL NUCLEATED CELL COUNT 1114 CMM (0-100); BODY FLUID APPEARANCE BLOODY; BODY FLUID RBC 49437 CMM; BODY FLUID SOURCE PLEURAL
[2017-03-22 06:41] LABS: HEMATOCRIT 27.8 % (38.0-50.0); HEMOGLOBIN 8.9 gm/dL (13.0-16.0); MEAN CELL VOLUME 87.9 FL (83-96); MEAN CORPUSCULAR HEMOGLOBIN 28.1 PG (28-34); MEAN PLATELET VOLUME 7.3 FL (6.5-11.5); RED BLOOD COUNT 3.17 X10e (3.90-5.60); RED CELL DISTRIBUTION WIDTH 16.7 % (11.0-15.5); WHITE BLOOD COUNT 8.7 X10e3 (4.0-10.5)
[2017-03-22 07:04] LABS: BUN/CREATININE RATIO 18.46; CALCIUM SERUM 8.3 mg/dL (8.4-10.2); CREATININE SERUM 1.3 mg/dL (0.6-1.4); GLOM FILT RATE Estimated 49.1 mL/min (>60); POTASSIUM 4.2 mmol/L (3.5-5.1)
== END 2017-03-23 19:30 | DRG 871 ==
LOC: CED 08:34 → CEDOF 12:35 → C5B 12:35 → CEDOF 17:58 → CED 17:58 → C5B 18:20 → CEDOF 18:20 → C5B 03-17 05:40
PROVIDERS: Emergency Medicine; Internal Medicine
PROC: 0W9930Z Drainage of Right Pleural Cavity with Drainage Device, Percutaneous Approach (ICD-10-PCS; principal; 2017-03-19)
DX: A41.9 Sepsis, unspecified organism (principal); J15.212 Pneumonia due to Methicillin resistant Staphylococcus aureus; J90 Pleural effusion, not elsewhere classified; J94.8 Other specified pleural conditions; G92 Toxic encephalopathy; N39.0 Urinary tract infection, site not specified; G30.9 Alzheimer's disease, unspecified; F02.80 Dementia in other diseases classified elsewhere, unspecified severity, without behavioral disturbance, psychotic disturbance, mood disturbance, and anxiety; I10 Essential (primary) hypertension; I25.10 Atherosclerotic heart disease of native coronary artery without angina pectoris; N40.0 Benign prostatic hyperplasia without lower urinary tract symptoms; E78.5 Hyperlipidemia, unspecified; Z98.49 Cataract extraction status, unspecified eye; Z79.82 Long term (current) use of aspirin; B96.20 Unspecified Escherichia coli [E. coli] as the cause of diseases classified elsewhere
CPT/HCPCS: 51702; 70450; 71010; 71250; 80048; 80076; 81003; 82140; 82150; 82553; 82947; 83605; 83615; 83690; 83735; 83986; 84100; 84157; 84484; 85025; 85027; 85610; 85730; 87040; 87070; 87086; 87088; 87186; 87205; 88108; 88182; 88184; 88185; 88305; 89051; 93005; 94640; 94760; 99291; J2543; J3260; J3370

== ENCOUNTER 2017-05-25 17:28 | Emergency (ER) | payer MEDICARE ==
--- NOTE | ~2017-05-25 | EKG ---
PATIENT: PRADEEP HUGO UNIT #: [id number] Ventricular Rate: 39 BPM Atrial Rate: 43 BPM QRS Duration: 162 ms Q-T Interval: 508 ms QTC Calculation(Bezet): 408 ms Calculated R Lacon: 104 degrees Calculated T Lacon: -52 degrees Diagnosis Line: Junctional rhythm Diagnosis Line: Right bundle branch block Diagnosis Line: ST elevation consider anterior injury or acute Diagnosis Line: infarct Diagnosis Line: ACUTE MS / STEMI Anterior infarct Diagnosis Line: Abnormal ECG Diagnosis Line: When compared with ECG of 16-MAR-2017 09:44, Diagnosis Line: Junctional rhythm has replaced Sinus rhythm Diagnosis Line: ACUTE MS / STEMI is now Present Diagnosis Line: Confirmed by PITER LAINEZ, PAIGE ([id number]) on 05/27/2017 Diagnosis Line: 2:56:21 PM INTERPRETING MD: PITER LAINEZ
--- NOTE | ~2017-05-25 | CR72 ---
[facility] A Service of [facility] RADIOLOGY TEXT RESULTS PATIENT: PRADEEP HUGO LOCATION: [facility] : [birth year] UNIT #: [id number] AGE: [address]: Jamie Mcdonald MD SEX: M ORDER DR: [id number] [facility] [address] [place], [place] [address] [id number] MR#: [id number] Acc #: [id number] NAME: PRADEEP HUGO : 1930 SEX: M STUDY DATE/TIME: 05/25/2017 19:20 UNIT: [facility] ROOM: STUDY DESCRIPTION: CR Chest Single View Portable Attending Physician: Jamie Mcdonald M.D. Ordering Physician: Gianni Schultz M.D. Primary Care Physician: Diane Haskins M.D. MEDICAL IMAGING REPORT This report is preliminary unless electronic signature is present EXAM Single view chest. INDICATIONS Chest pain for 1 hour. Cardiac failure. Respiratory failure. FINDINGS Single portable AP view of the chest compared to 05/25/2017 at 18:12. Endotracheal tube has been retracted with the tip now 2 cm above the cory. The heart is enlarged. There is a right basilar airspace opacity and/or pleural effusion. No pneumothorax. Lung volumes are low. New right IJ central line terminates over the right atrium. IMPRESSION 1. Interval repositioning of endotracheal tube, now 2 cm above the cory. 2. Placement of right IJ central line with tip over the right atrium. If the desired tip location is in the SVC, this can be retracted by 5 cm. No pneumothorax. Dictated by... Lorenzo Navarro M.D. THIS IS AN ELECTRONICALLY VERIFIED REPORT Lorenzo Navarro M.D. at 05/26/2017 3:57 PM RPC/radha TD: 05/26/2017 14:31 JOB #: [id number] MEDICAL IMAGING REPORT Page 1 of 1 COPY
--- NOTE | ~2017-05-25 | CR71 ---
[facility] A Service of [facility] RADIOLOGY TEXT RESULTS PATIENT: PRADEEP HUGO LOCATION: [facility] : [birth year] UNIT #: [id number] AGE: [address]: Jamie Mcdonald MD SEX: M ORDER DR: [id number] [facility] [address] [place], [place] [address] [id number] E MR#: [id number] Acc #: [id number] NAME: PRADEEP HUGO : 1930 SEX: M STUDY DATE/TIME: 05/25/2017 18:12 UNIT: [facility] ROOM: STUDY DESCRIPTION: CR Chest Single View Attending Physician: Jamie Mcdonald M.D. Ordering Physician: Jamie Mcdonald M.D. MEDICAL IMAGING REPORT This report is preliminary unless electronic signature is present EXAM AP portable chest 05/25/2017 at 18:12 HISTORY Cardiac arrest status post CPR and endotracheal tube placement today. COMPARISON AP portable chest 03/22/2017. FINDINGS Transcutaneous pacer pad obscures the right hemithorax. ET tube tip projects about 1.2 cm above the level of the cory. There is a dense opacity in the right base which may represent a combination of airspace disease and pleural fluid. No definite pneumothorax is identified. Left lung is clear. There is moderate cardiac enlargement. Benign calcified granulomas changes are seen in the infrahilar region. IMPRESSION 1. Right basilar airspace disease and/or small pleural fluid. 2. No visible pneumothorax. 3. Stable cardiomegaly. 4. ET tube tip about 1.2 cm above the cory. Dictated by... Cherrie Palomares M.D. THIS IS AN ELECTRONICALLY VERIFIED REPORT Cherrie Palomares M.D. at 05/28/2017 8:38 AM DONNIE/alvaro TD: 05/26/2017 13:03 [facility] A Service of [facility] RADIOLOGY TEXT RESULTS PATIENT: PRADEEP HUGO LOCATION: [facility] #: [id number] : [birth year] UNIT #: [id number] AGE: [address]: Jamie Mcdonald MD SEX: M ORDER DR: JOB #: [id number] MEDICAL IMAGING REPORT Page 1 of 1 COPY
[~2017-05-25 17:28] MED LIST changes: +ATORVASTATIN CA40 MG PO; +BUMETANIDE0.5 MG PO; +CLOPIDOGREL75 MG PO; +COMBIVENT RESPIM4 GM PO; +DORZOLAMIDE HCL10 M2 OU; +FERROUS GLUCON324 M1 PO; +LISINOPRIL PO; +MAPAP500 MG PO; +METOPROLOL TART25 MG PO; +MULTIVITAMINS1 EAC3 PO; +PANTOPRAZOLE SO20 MG PO; +[UNRECOGNIZED DRUG - OTHER] PO
[2017-05-25 17:55] LABS: ARTERIAL BLD GAS O2 SATURATION 96.1 % (90.0-100.0); ARTERIAL BLOOD GAS CARBOXY HB 0.5 %sat (0.0-9.0); ARTERIAL BLOOD GAS HCO3 12.3 mmol/L; ARTERIAL BLOOD GAS MET HB 0.8 %sat (0.0-2.0)
[2017-05-25 17:56] LABS: ARTERIAL BLOOD GAS ALLEN TEST NORMAL; ARTERIAL BLOOD GAS ART SITE RIGHT RADIAL; ARTERIAL BLOOD GAS DELIVERY AMBU BAG; ARTERIAL BLOOD GAS PCO2 59.2 mmHg (35.0-45.0); ARTERIAL BLOOD GAS pH 6.927 (7.350-7.450); ARTERIAL DRAW? YES
[2017-05-25 18:19] LABS: EOSINOPHIL# 0.1 X10e3 (0-0.7); EOSINOPHIL% 3.1 % (0.0-7.0); HEMATOCRIT 25.5 % (38.0-50.0); HEMOGLOBIN 8.2 gm/dL (13.0-16.0); MEAN CELL VOLUME 92.3 FL (83-96); MEAN CORPUSCULAR HEMOGLOBIN 29.6 PG (28-34); MEAN CORPUSCULAR HGB CONC 32.1 g/dL (30-36); MEAN PLATELET VOLUME 7.3 FL (6.5-11.5); MONOCYTE# 0.2 X10e3 (0-1.0); MONOCYTE% 5.6 % (3.0-12.0); NEUTROPHIL# 2.9 X10e3 (1.5-7.1); NEUTROPHIL% 68.3 % (40-75); PLATELET COUNT 269 X10e3 (140-420); RED BLOOD COUNT 2.76 X10e (3.90-5.60); RED CELL DISTRIBUTION WIDTH 17.2 % (11.0-15.5); WHITE BLOOD COUNT 4.3 X10e3 (4.0-10.5)
[2017-05-25 18:20] LABS: DIFF IND NO
[2017-05-25 18:28] LABS: POC - CKMB 8.8 ng/mL (0.0-7.9); POC - TROPONIN <0.05 ng/mL (<=0.05)
[2017-05-25 18:30] LABS: INR 1.2; PROTHROMBIN TIME (PATIENT) 13.2 SECONDS (10.0-11.7)
[2017-05-25 20:12] LABS: ALBUMIN SERUM 1.9 g/dL (3.5-5.0); BILIRUBIN, DIRECT 0.2 mg/dL (0.0-0.2); BILIRUBIN,INDIRECT 0.1 mg/dL (0.0-0.9); BILIRUBIN,TOTAL 0.3 mg/dL (0.2-2.0); BUN/CREATININE RATIO 15.33; CALCIUM SERUM 7.3 mg/dL (8.4-10.2); CREATININE SERUM 1.5 mg/dL (0.6-1.4); GLOM FILT RATE Estimated 41.3 mL/min (>60); PROTEIN TOTAL SERUM 5.3 g/dL (6.0-8.3)
[2017-05-25 20:14] LABS: POTASSIUM 5.7 mmol/L (3.5-5.1)
== END 2017-05-25 20:15 | disposition expired ==
LOC: CED 17:28
PROVIDERS: Emergency Medicine
DX: I46.9 Cardiac arrest, cause unspecified (principal); I21.3 ST elevation (STEMI) myocardial infarction of unspecified site; I10 Essential (primary) hypertension; F03.90 Unspecified dementia, unspecified severity, without behavioral disturbance, psychotic disturbance, mood disturbance, and anxiety
CPT/HCPCS: 36415; 36556; 36600; 51702; 71010; 80048; 80076; 82553; 82803; 84484; 85025; 85610; 85730; 86850; 86900; 86901; 92950; 93005; 94002; 96361; 96365; 96366; 96368; 96375; 96376; 99291; J0171; J0461; J1250